=== PATIENT | male | born 1995 | race Caucasian/White ===

== ENCOUNTER → 2025-02-18 | Day surgery (SDC) | payer OTHER ==
[~2025-02-18] MED LIST: Rabies Vaccine Human 2.5 UNITS VIAL ONE
== END ==
LOC: ER/OP 15:08
PROVIDERS: ATTEND Nurse Practitioner Family
DX: Z29.14 Encounter for prophylactic rabies immune globulin (principal)
CPT/HCPCS: 90675; 99281

== ENCOUNTER → 2025-02-22 | Day surgery (SDC) | payer OTHER | LOC: ER/OP 22:39 | PROVIDERS: ATTEND Pathology Anatomic Pathology & Clinical Pathology | DX: Z29.14 Encounter for prophylactic rabies immune globulin (principal) | CPT/HCPCS: 90675 ==

== ENCOUNTER → 2025-02-28 | Day surgery (SDC) | payer OTHER | LOC: ER/OP 19:41 | PROVIDERS: ATTEND Pathology Anatomic Pathology & Clinical Pathology | DX: Z29.14 Encounter for prophylactic rabies immune globulin (principal) | CPT/HCPCS: 90675 ==

== ENCOUNTER → 2025-03-14 | Day surgery (SDC) | payer OTHER | LOC: ER/OP 22:36 | PROVIDERS: ATTEND Pathology Anatomic Pathology & Clinical Pathology | DX: Z29.14 Encounter for prophylactic rabies immune globulin (principal) | CPT/HCPCS: 90471; 90675 ==